=== PATIENT | male | born 1960 | race Caucasian/White ===

== ENCOUNTER → 2023-07-18 15:20 | Outpatient (REF) | payer OTHER, SELFPAY | LOC: RAD 15:20 | PROVIDERS: ATTENDING PHYSICIAN Family Medicine | DX: R05.3 Chronic cough (principal) | CPT/HCPCS: 71046 ==

== ENCOUNTER → 2023-07-26 12:57 | Outpatient (REF) | payer OTHER, SELFPAY | LOC: MRI 12:57 | PROVIDERS: ATTENDING PHYSICIAN Orthopaedic Surgery Orthopaedic Surgery of the Spine; FAMILY PHYSICIAN Family Medicine | DX: M48.062 Spinal stenosis, lumbar region with neurogenic claudication (principal) | CPT/HCPCS: 72158; A9575 ==

== ENCOUNTER 2024-08-27 16:43 | Inpatient (IN) | payer OTHER, SELFPAY ==
[2024-08-27] VITALS (26 sets, daily range): BP systolic 138–190; BP diastolic 66–140; BMI 45.7; BMI 45.0
--- NOTE | 2024-08-27 09:08 | ED.GENMED ---
History of Present Illness
<Alexey Fernandez PA-C - Last Filed: 08/27/24 12:44>
General
Chief Complaint: Breathing Problem
Source: patient and records
Time Seen by Provider: 08/27/24 09:07
History of Present Illness
History of Present Illness:
64-year-old male with past medical history of hypertension, valvular disease, GERD, sleep apnea presenting to the emergency department for evaluation of gradually worsening shortness of breath, exertional dyspnea and lower extremity edema that has
been ongoing and worsening over the last 2 weeks, today was at its worst. Patient was at the dentist office for routine cleaning and he noted to the dentist that he had been feeling unwell, they checked his blood pressure and was noted to have a
systolic blood pressure of greater than 200 and diastolic blood pressure well over 110. Patient states that he is compliant with all of his medications, normally does not check his blood pressure at home so he does note that he is unsure as to what
his blood pressures have been recently. He does state his sensation as if he were wheezing and notes that even walking about 10 feet causes him to be extremely dyspneic. Patient denies any recent illnesses, cough, pleurisy, hemoptysis or any other
concerns.
Past History
<Alexey Fernandez PA-C - Last Filed: 08/27/24 12:44>
Past History
ED Past Medical History: GERD, HTN and Valvular disease
ED Past Surgical History: Cardiac and Orthopedic
Social History
Tobacco: Non-smoker
Alcohol: None
Drug: None
Personal:
Living: with family
Review of Systems
<Alexey Fernandez PA-C - Last Filed: 08/27/24 12:44>
Review of Systems
All Other Systems: ROS reviewed and negative except as documented in HPI and ROS
Phy Exam
<Alexey Fernandez PA-C - Last Filed: 08/27/24 12:44>
Physical Exam
Physical Exam:
GENERAL: Alert , in no apparent distress, significantly overweight, appears uncomfortable and short of breath, 1-2 sentence dyspnea
HEAD: Normocephalic atraumatic
EYE: Clear conjunctiva
NECK: Supple
ENT: o/p clr, mmm.
CARDIAC: Irregularly irregular rate and rhythm with rates between 97 and 110 bpm
LUNGS: Clear breath sounds bilaterally, no acute respiratory distress, no wheezes/rales/rhonchi
ABDOMEN: Soft, without focal tenderness, no r/g, no cvat
NEUROLOGICAL: Alert and oriented
SKIN: Warm and dry, skin intact.
MUSCULOSKELETAL: 1+ pitting edema bilateral lower extremity, well perfused.
PSYCH: Normal and appropriate interaction.
Scores
<Alexey Fernandez PA-C - Last Filed: 08/27/24 12:44>
Heart Failure Risk
Heart Failure Risk Score: Yes
History of Stroke or TIA: No
History of intubation for respiratory distress: No
Heart rate on ED arrival >/= 110: No
SaO2 <90% on arrival on room air: No
HR >/=110 during 3min walk test (or too ill to perform test): Yes
ECG has acute ischemic changes: No
Urea >/=12mmol/L (BUN 33.6mg/dL): No
Serum CO2>/=35mmol/L: No
Troponin I or T elevated to NC Level (0.4mg/dL): No
NT-proBNP >/=5,000ng/L (5,000pg/ml): No
HF Risk Score: 2
Admission Status: MEDIUM RISK 9.2% Consider observation or discharge to home with homecare & f/u visit to PCP/Ditcher, or SNF for treatment
Heart Score for Chest Pain Patients
STEMI patient?: No
History: Moderately Suspicious
ECG: Normal
Age: >45 - <65 years
Risk Factors: 1 or 2 Risk Factors
Troponin: </= Normal Limit
Heart Score for Chest Pain Patients: 3
Heart Score Risk: 2.5% MACE over next 6 weeks
Withdrawal Assessment of Alcohol
Withdrawal Assessment Completed?: Not applicable
Course
<Alexey Fernandez PA-C - Last Filed: 08/27/24 12:44>
Orders/Labs/Results
Orders:
Orders
08/27/24 08:55
Electrocardiogram (*1) Urgent
Reason for Study: Shortness of Breath
EKG- Treatment ONCE
08/27/24 09:16
Furosemide [Lasix] 40 mg IV NOW STA
08/27/24 09:30
Nitroglycerin 100 mg/250 ml [Nitroglycerin Premix] 100 mg in 250 ml IV PER PROTOCOL
Initial dose in mcg/min, then titrate:: 20
Titrate to keep:: SBP < 160 mmHg
Titrate by mcg/min:: 5 mcg/min, may increase by 10 mcg/min if dose > 20 mcg/min
Frequency of titrations (minutes):: every 3-5 minutes
Maximum dose in mcg/min:: 200
Begin to taper infusion when:: Remained at goal for 2hrs
Taper by mcg/min:: 5 mcg/min
Frequency of taper (minutes) if patient maintains goal:: 30
Taper to off?: Yes
If infusion off & no longer maintaining goal:: Contact Provider
08/27/24 09:33
Basic Metabolic Panel Urgent
Complete Blood Count/With Diff Urgent
Iwegm-Mbtl-Wfobnda Urgent
NT-proBNP Urgent
Troponin I Urgent
08/27/24 09:35
CR Chest Portable - 1 View Urgent
Comment:
Reason For Exam: SOB, HTN
Reason Study Needs to be Portable: Patient Unstable
08/27/24 12:23
Echo 2D MMode Color/Doppler Routine
Reason for Study: CHF
08/27/24 20:00
Apixaban [Eliquis] 5 mg PO BID
Abnormal Lab Results
08/27/24
09:33
Lymphocytes % 19.8 L %
(20.5-51.1)
Glucose 140 H mg/dl
(70-99)
Troponin I 0.036 H* ng/ml
08/27/24 09:33
08/27/24 09:33
Vital Signs
Initial and Last Documented VS:
Initial Vital Signs
Temp Pulse Resp BP Pulse Ox
98.4 F 91 18 156/118 96
08/27/24 08:51 08/27/24 08:51 08/27/24 08:51 08/27/24 08:51 08/27/24 08:51
Last Documented Vital Signs
Temp Pulse Resp BP Pulse Ox
98.4 F 120 24 167/123 93
08/27/24 08:51 08/27/24 11:40 08/27/24 11:40 08/27/24 11:40 08/27/24 11:40
<Royal Myers DO - Last Filed: 08/27/24 11:06>
Orders/Labs/Results
Orders:
Orders
08/27/24 08:55
Electrocardiogram (*1) Urgent
Reason for Study: Shortness of Breath
EKG- Treatment ONCE
08/27/24 09:16
Furosemide [Lasix] 40 mg IV NOW STA
08/27/24 09:30
Nitroglycerin 100 mg/250 ml [Nitroglycerin Premix] 100 mg in 250 ml IV PER PROTOCOL
Initial dose in mcg/min, then titrate:: 20
Titrate to keep:: SBP < 160 mmHg
Titrate by mcg/min:: 5 mcg/min, may increase by 10 mcg/min if dose > 20 mcg/min
Frequency of titrations (minutes):: every 3-5 minutes
Maximum dose in mcg/min:: 200
Begin to taper infusion when:: Remained at goal for 2hrs
Taper by mcg/min:: 5 mcg/min
Frequency of taper (minutes) if patient maintains goal:: 30
Taper to off?: Yes
If infusion off & no longer maintaining goal:: Contact Provider
08/27/24 09:33
Basic Metabolic Panel Urgent
Complete Blood Count/With Diff Urgent
Zyoph-Balz-Yjbljqn Urgent
NT-proBNP Urgent
Troponin I Urgent
08/27/24 09:35
CR Chest Portable - 1 View Urgent
Comment:
Reason For Exam: SOB, HTN
Reason Study Needs to be Portable: Patient Unstable
08/27/24 12:23
Echo 2D MMode Color/Doppler Routine
Reason for Study: CHF
08/27/24 20:00
Apixaban [Eliquis] 5 mg PO BID
Abnormal Lab Results
08/27/24
09:33
Lymphocytes % 19.8 L %
(20.5-51.1)
Glucose 140 H mg/dl
(70-99)
Troponin I 0.036 H* ng/ml
08/27/24 09:33
08/27/24 09:33
Vital Signs
Initial and Last Documented VS:
Initial Vital Signs
Temp Pulse Resp BP Pulse Ox
98.4 F 91 18 156/118 96
08/27/24 08:51 08/27/24 08:51 08/27/24 08:51 08/27/24 08:51 08/27/24 08:51
Last Documented Vital Signs
Temp Pulse Resp BP Pulse Ox
98.4 F 120 24 167/123 93
08/27/24 08:51 08/27/24 11:40 08/27/24 11:40 08/27/24 11:40 08/27/24 11:40
<Alexey Fernandez PA-C - Last Filed: 08/27/24 12:44>
MDM/Problems Addressed
Differential Diagnosis Includes:
Cardiac arrhythmia/dysrhythmia/new onset A-fib, worsening valvular disease, pleural effusion, cardiomyopathy, less concern for infectious etiology, ACS
MDM/Problems Addressed:
64-year-old male presenting the ER for evaluation of severely elevated blood pressure combined with worsening shortness of breath over the last 2 weeks. Patient is hypertensive here, improved from reports that dentist office today but appears
unwell, 1-2 sentence dyspnea. No hypoxia. Patient is in new onset A-fib with rates around 100bpm. Possible hypertensive urgency/emergency. Given his profound hypertension with suspicion for congestive heart failure will initiate patient on nitro
drip. Lasix 40 mg IV ordered. Will contact cardiology to discuss case pending labs and imaging. Anticipate admission
Chronic conditions affecting care: HTN
Acute Exacerbation and/or Progression of Chronic Illness: HTN
<Alexey Fernandez PA-C - Last Filed: 08/27/24 12:44>
*Radiology
Radiology exam reviewed: preliminary read by ED provider (Cardiomegaly)
*Pulse Oximetry
Patient hypoxic: no
*EKG
Comparison EKG: changes noted
Heart Rate: 103
Rate: tachycardiac
Rhythm: a-fib and PVC's
Ischemia: non-specific ST changes
*Research Physiologist Interpretation
Rate: tachycardiac
Rhythm: a-fib
*Critical Care Note
Total Time (30-74mins, 75-104mins- exclusive of procedures): 30
comment:
Critical care statement: A total of 30 minutes of critical care time was provided for this patient. This includes management of unstable vital signs, evaluation of the patient at bedside, reviewing the patient's pertinent medical records, discussion
with consultants, review of old EKGs and review of pertinent medical records. This time with separate from time utilized to perform the aforementioned documented procedures
Data Reviewed
Review of Other/Old Records Reveals: Labs, Records and Radiology Studies
Source: patient and records
<Alexey Fernandez PA-C - Last Filed: 08/27/24 12:44>
Patient Management
Discussion with other providers: Hospitalist and Line Locator
Escalation/DeEscalation of care consider admission/obs:
Hospitalist team to admit patient for continued evaluation and treatment of new onset atrial fibrillation, cardiomyopathy, hypertensive urgency. Cardiology team was notified and will see patient in consultation.
ED Attending Note
<Alexey Fernandez PA-C - Last Filed: 08/27/24 12:44>
-
Portions of this chart may have been created with voice recognition software.� Occasional wrong word or��sound alike� substitutions may have occurred due to the inherent limitations of voice recognition software.
<Royal Myers DO - Last Filed: 08/27/24 11:06>
ED Attending Note
Patient seen and examined by attending physician: Yes
I performed the substantive portion of visit, reviewed & personally made and approve the management plan that is documented in note by myself or LUKAS.: Yes
ED Attending Note:
64-year-old male history of hypertension who presents with progressive dyspnea on exertion, orthopnea and lower extremity swelling as well as uncontrolled hypertension. Patient states he has never been short of breath like this. Exam: Heart
irregularly irregular, blood pressure 160/120 on my exam. Legs edematous bilaterally. Is obese. Assessment and plan: Suspect CHF. Question secondary to new onset A-fib. Diurese and start nitro drip. Reassess blood pressure closely
Discharge Plan
Departure
Patient Disposition: Admit
Date of Disposition: 08/27/24
Time of Disposition: 10:39
Presentation/result/management discussed w/ accepting MD/DO: Hospitalist
Discharge Problem:
New onset atrial fibrillation, Acute exacerbation of CHF (congestive heart failure), Hypertensive urgency
Prescriptions:
No Action
rabeprazole [AcipHex] 20 MG tablet,delayed release (DR/EC)
20 mg PO DAILY
diltiazem HCl 180 mg Capsule,Extended Release 24hr
180 mg PO DAILY
torsemide 100 mg Tablet
100 mg PO DAILYPRN PRN (Reason: patient takes this when he can/wants too)
docusate sodium [Colace] 100 mg Capsule
200 mg PO HSPRN PRN (Reason: constipation)
Referrals:
Magdaleno Liang, DO [Family Provider] -
Interventions
Interventions:
*Risk Screen - Suicide Last Done: 08/27/24 08:51
*General Assessment Last Done: 08/27/24 08:51
*Neglect/Abuse Screening Last Done: 08/27/24 08:51
ED- Cardiac Assessment Last Done: 08/27/24 09:48
ED- Neurological Assessment Last Done: 08/27/24 09:48
ED- Pulmonary Assessment Last Done: 08/27/24 09:48
Discharge Date and Time
Print Language: [place]
[2024-08-27] MEDS: LASIX 40 MG IV ×2 (09:25→17:20)
[2024-08-27] MEDS: NITROGLYCERIN PREMIX 250 IV (09:36)
[2024-08-27 09:48] LABS: % Eosinophils 1.3 % (0-6); % Immature Granulocytes 0.3 % (0-0.5); % Lymphocytes 19.8 % (20.5-51.1); % Monocytes 8.5 % (1.7-9.3); % Neutrophils 69.1 % (42.2-75.2); Absolute Basophils 0.1 10^3/uL (0-0.2); Absolute Eosinophils 0.1 10^3/uL (0-0.7); Absolute Lymphocytes 1.2 10^3/uL (1.2-3.4); Absolute Monocytes 0.5 10^3/uL (0.1-0.6); Absolute Neutrophils 4.3 10^3/uL (1.4-6.5); Hemoglobin 14.4 g/dL (13.0-18.0); Mean Corp Hgb Conc. 34.3 g/dL (33.0-37.0); Mean Corpuscular Hgb 29.3 pg (27.0-31.0); Mean Corpuscular Volume 85.5 fL (80.0-94.0); Mean Platelet Volume 10.3 fL (7.4-10.4); Nucleated Red Blood Cells % 0 % (-); Platelet Count 164 10^3/uL (130-400); Red Blood Cell Count 4.91 10^6/uL (4.70-6.10); Red Cell Dist. Width 13.5 % (11.5-14.5); White Blood Cell Count 6.3 10^3/uL (4.8-10.8)
[2024-08-27 10:00] LABS: ALT (SGPT) 31 U/L (0-50); AST (SGOT) 17 U/L (17-59); Albumin 3.9 g/dl (3.5-5.0); Alkaline Phosphatase 87 U/L (38-126); Blood Urea Nitrogen 12 mg/dl (9-20); Calcium 9.1 mg/dl (8.4-10.2); Carbon Dioxide 27 mmol/L (22-30); Chloride 106 mmol/L (98-107); Direct Bilirubin 0.3 mg/dl (0.0-0.4); Estimated Creatinine Clearance > 125 ml/min; Glucose 140 mg/dl (70-99); Potassium 4.1 mmol/L (3.5-5.1); Sodium 141 mmol/L (135-145); Total Bilirubin 1.3 mg/dl (0.2-1.3); Total Protein 6.9 g/dl (6.3-8.2); eGFR > 60.00
[2024-08-27 10:15] LABS: NT-proBNP 1740 pg/ml; Troponin I 0.036 ng/ml
--- NOTE | 2024-08-27 11:15 | CON.CAR ---
Addendum entered and electronically signed by Xavi Mejia MD 08/27/24 15:00:
I saw and examined the patient.
The HOGSHEAD DUMPER's note was reviewed and I agree with the note.
Comment:
64-year-old man with VT s/p ICD, HFpEF, hypertension, hyperlipidemia, JACOBO on CPAP, paroxysmal atrial fibrillation (previously not on anticoagulation) who presents with 2 weeks of dyspnea and leg swelling. He reports that he has not been taking his
diuretic because he is bothered by how much he has to pee. Today he was short of breath even with walking 30 feet from his office to the conference room and decided to come to the hospital. On exam, he is obese, dyspneic with long sentences, has
3+ lower extremity edema, irregular rate and rhythm, no murmurs, and decreased breath sounds. Labs notable for troponin 0.036, proBNP 1740, creatinine 0.8. ECG shows atrial fibrillation with rapid ventricular response, HR 103 bpm, nonspecific ST T
wave changes. TTE 08/27/2024: LVEF 60-65%, normal RV, severe TR, PASP at least 41 mmHg. Device interrogation reveals that he has been in atrial fibrillation since 06/18/2024.
Mr. Oliva is profoundly volume overloaded due to severe exacerbation of acute on chronic HFpEF. We will continue IV diuresis with 40 mg IV Lasix twice daily. He thinks his dry weight is around 340 pounds, but he is 346 lb here and clearly
has a lot of volume on board, so we will likely need to reestablish a dry weight. For his persistent atrial fibrillation, we will increase his diltiazem from 180 mg daily to 240 mg daily. We will also start Eliquis for anticoagulation.
[id number] 2 (hypertension, CHF). If he is still in atrial fibrillation once euvolemic, we can consider NIMESH/cardioversion. He is currently requiring a nitro drip for hypertensive urgency. Goal BP less than 160/100 for first 24 hours. Suspect
his blood pressures will decrease as we diurese him.
Original Note:
Consultation
Consultation Request
Date/Time Consultation Requested: 08/27/24 1032
Date/Time Consultation Performed: 08/27/24 1100
Requesting Provider: Alexey NEFF
Performing Provider: Trinidad GARCIA for Dr. Mejia
Reason for Consultation: BAILON, HTN, AFIB, CHF
Medical History
-
Chief Complaint: SOB
History of Present Illness:
64 y/o male (patient of Dr. 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
present for about 2 weeks, but worsened significantly over the past few days. Worse with exertion, worse with laying. Has a dry cough now. Has to stop after 10-15 feet. He has LE edema and abdominal bloating. He has not noticed weight gain, but has
been on a diet. Thinks his weight is typically around 340 lbs. Currently 345 lbs in ER. He has not been very mobile due to back issues. Otherwise, he is prescribed torsemide 100 mg daily, but has not been taking it over the past few weeks due to too
much urination. He has been compliant with CPAP. He went to his dentist today to have a cavity filled and told them he had this SOB and they checked a BP and it was severely elevated around 230 mmhg systolically per patient and he was told to come
to the ER. He is in no distress at the time of my assessment.
Past Medical History
Past Medical History: Arrhythmias, CHF, GERD, HTN and Hypercholesterolemia
Social History
Tobacco: Non-Smoker
Alcohol: None (hasn't been drinking any ETOH due to diet)
Family History
Family History: CAD (mom)
Allergies / Home Medications
Allergy/AdvReac Type Severity Reaction Status Date / Time
No Known Allergies Allergy Verified 08/27/24 08:51
�Medication �Instructions �Recorded �Confirmed �Type
rabeprazole 20 mg tablet,delayed 20 mg PO DAILY 04/24/21 08/27/24 History
release (AcipHex)
diltiazem HCl 180 mg 180 mg PO DAILY 08/27/24 08/27/24 History
capsule,extended release 24 hr
docusate sodium 100 mg capsule 200 mg PO HSPRN PRN constipation 08/27/24 08/27/24 History
(Colace)
torsemide 100 mg tablet 100 mg PO DAILYPRN PRN patient 08/27/24 08/27/24 History
takes this when he can/wants too
Review of Systems
-
History Source: Patient
All other systems: Negative unless noted
Respiratory: Cough and Trouble Breathing
Physical Exam
Vital Signs
Temp Pulse Resp BP Pulse Ox
98.4 F 108 28 147/105 92
08/27/24 08:51 08/27/24 10:21 08/27/24 10:21 08/27/24 10:00 08/27/24 10:21
Lab Results
08/27/24 09:33
08/27/24 09:33
Troponin I 0.036 ng/ml H* 08/27/24 09:33
Nyd-V-Wrvhtiuzwon Pept 1740 pg/ml 08/27/24 09:33
Physical Exam
General: No Apparent Distress
HEENT: Normocephalic and Anicteric
Respiratory: Other (diminished to b/l bases)
Cardiac: Irregular Rhythm
Musculoskeletal: Edema (moderate BLE edema)
Skin: Warm and Dry
Neuro: AO x 3
Psych: Calm
Impression / Plan
-
SOB:
-wzzqz-ki-swmnieg HFpEF- typically on high dose torsemide daily (100 mg), but hasn't been taking that for weeks due to increased urination. Agree with IV diuresis, which requires intensive monitoring. Update echo. CHF education. Limit sodium and
fluid.
AFIB: persistent
-OP notes reviewed and paroxysmal in the past. I interrogated device to see if we can tell when it started- per device RN, patient in AFIB since 06/18/24 with rates 70-140 BPM.
-no palps. Continue diltiazem, but increase dose for better rate control.
-eventual rhythm control, but after diuresis
-reports compliance with CPAP, does not drink any ETOH at this time due to his diet- I told him best practice is to continue this (no ETOH)
-check thyroid
-[id number] score is 3 for HTN, CHF. Eliquis 5 mg PO BID recommended. He is agreeable for OAC and denies any history of bleeding issues. Check pricing with CM.
HTN:
-severe
-monitor with diuresis
-currently on nitro drip, which requires intensive monitoring
-on dilt 180 mg daily at home
VT s/p ICD:
-stable, no shocks or ventricular events on interrogation
Obesity, severe:
-will benefit from weight loss moving forward
Data Reviewed
-
EKG: Tracing Personally Visualized and interpreted (AFIB 103 BPM)
Radiology: Report Reviewed by me (CXR: cardiomegaly and mild CHF with probable minimal left effusion.)
Medical Tests (Nuc Med, Echo etc): Report Reviewed by me (echo 04/25/21: Normal biventricular size and systolic function without regional wall motion abnormality. Estimated LVEF 55%. Mild concentric left ventricular hypertrophy. Normal diastolic
function. No significant valve disease. Normal PASP.)
Labs: Labs Reviewed by me
--- NOTE | 2024-08-27 14:08 | CARDSERVLU ---
Echocardiogram with [facility] completed after protocol screening completed. Allergies verified.
Patent IV site: _L A/C____
IV site flushed with 0.9% NaCl pre and post administration.
Diluted bolus method utilized to enhance visualization of ventricular cabrera.
Total volume given: ___3_ mL
Patient tolerated all procedures well without complications.
[2024-08-27 15:18] LABS: TSH Reflex To Free T4 1.17 uIU/ml (0.47-4.68)
--- NOTE | 2024-08-27 15:30 | CM ---
Met patient and in room. Patient independent,drives. They live in 2 level home with one step to enter. Half bath on food service substitute. UP full flight to bedrooms and full bathroom. He has shower rails. NO history of SNF, VNA.
Pharmacy: [facility]
PCP:Patsy Liang
Cm consult for cost of [place] 5 mg BID. Called Rx insurer and received cost estimates of 30 days $50.00 and 90 days $100.00. Both patient and said they can afford that. Cost estimates sent to Trinidad Dunaway who put consult in.
PLAN: home no needs
--- NOTE | 2024-08-27 16:07 | HPS.HSE ---
Family Physician
-
Family Physician: Magdaleno Liang
Chief Complaint
-
Shortness of breath for 2 weeks duration
History of Present Illness
64 years old male admitted with shortness of breath. Patient reported started mild but progressed over the last few days. He also noticed weight gain with abdominal bloating. Patient reports heaviness in his chest at times. He denies productive
cough. No fever or chills. In the ER, he was found to have elevated blood pressure and was started on nitroglycerin drip. He does have history of atrial fibrillation.
Medical History
Past Medical History
Past Medical History: Reports Other (Atrial fibrillation, heart failure, hypertension, history of ventricular tachycardia status post ICD, obesity)
Past Surgical History: Reports Other (No recent major surgery)
Social History
Tobacco: Non-smoker
Alcohol: None
Drug: None
Personal:
Living: With Family
Family History
Family History: CAD
Allergies / Home Medications
Allergies reflects when Allergies were last updated in [facility].
Home Medications with original date entered in [facility]
Allergy/Medication List:
Allergies
Allergy/AdvReac Type Severity Reaction Status Date / Time
No Known Allergies Allergy Verified 08/27/24 08:51
Home Medications
rabeprazole 20 mg tablet,delayed release (AcipHex) 20 mg PO DAILY 04/24/21
diltiazem HCl 180 mg capsule,extended release 24 hr 180 mg PO DAILY 08/27/24
docusate sodium 100 mg capsule (Colace) 200 mg PO HSPRN PRN constipation 08/27/24
torsemide 100 mg tablet 100 mg PO DAILYPRN PRN patient takes this when he can/wants too 08/27/24
Review of Systems
-
History Source: Patient
A 12 point ROS was completed and negative except as noted: Yes
Constitutional: Denies Fever
EENT: Denies Sore Throat
Respiratory: Reports Cough and Trouble Breathing
Cardiac: Denies Chest Pain
Abdomen/GI: Denies Abdominal Pain
: Denies Difficulty Voiding
Musculoskeletal: Reports Edema; Denies Muscle Stiffness
Neurological: Denies Numbness
Endocrine: Denies Temp Intolerance
Hematologic/Lymphatic: Denies Bruising
Psych: Denies Panic Disorder
Physical Exam
Vital Signs
Vital Signs
Temp Pulse Resp BP Pulse Ox
98.4 F 99 22 148/66 95
08/27/24 08:51 08/27/24 15:30 08/27/24 15:30 08/27/24 15:30 08/27/24 15:30
Physical Exam
General: Conversant and Obese; No Pain
HEENT: Anicteric and Moist mucous membranes
Respiratory: Rales
Cardiac: S1/S2 and Irregular Rhythm
GI: Soft and Non Tender
Genito-urinary: No Rice
Musculoskeletal: Edema, Left Lower Extremity and Edema, Right Lower Extremity
Skin: No Jaundice
Neuro: AO x 3 and Nonfocal/grossly intact
Psych: Calm and Intact Judgment/Insight
Laboratory Results
-
08/27/24 09:33
08/27/24 09:33
Laboratory Results
Total Bilirubin 1.3 mg/dl (0.2-1.3) 08/27/24 09:33
AST 17 U/L (17-59) 08/27/24 09:33
ALT 31 U/L (0-50) 08/27/24 09:33
Alkaline Phosphatase 87 U/L (38-126) 08/27/24 09:33
Troponin I 0.036 ng/ml H* 08/27/24 09:33
Impression/Plan
-
64 years old male presented with shortness of breath was diagnosed with acute heart failure
#Acute on chronic heart failure with preserved ejection fraction
Admit the patient to the hospital
Start the patient on intravenous diuretic, twice daily for now. Monitor weight and electrolytes
Control heart rate with rate control medication
Restrict salt intake
Monitor on telemetry echocardiogram 08/27/24 showed LVEF 60 to 65% with no regional wall motion abnormality both ventricles, severe tricuspid regurgitation, PASP 41 mmHg
# None ischemic myocardial injury with a troponin elevation. Recheck troponin.
# Hypertensive emergency with heart failure
Patient was started on intravenous nitroglycerin drip
Will wean off nitroglycerin drip and continue with Lasix, Cardizem, add as needed hydralazine
# History of V. 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
#Primary hypertension
#Morbid obesity, BMI 45
#History of paroxysmal atrial fibrillation, currently persistent
[id number] score around 2 4 hypertension and heart failure, patient was started on Eliquis.
c/w Cardizem
# Obstructive sleep apnea, continue with CPAP
# Headache, likely related to Nitro gtt, will wean off
Add PRN Tylenol.
Total time spent to see the patient, examine the patient, review data and lab result, discuss treatment plan with patient, ER doctor, nursing staff around 75 minutes
[2024-08-27] MEDS: TYLENOL 1000 MG PO ×2 (17:14→23:19)
[2024-08-27 18:02] LABS: Troponin I 0.023 ng/ml
--- NOTE | 2024-08-27 18:44 | PTCARENOTE ---
Rec'd Pt A,A+Ox3, no c/o pain currently. IV Ntg at 40 mcg/min infusing via R AC. L AC INT. Pt in A-fib on take away worker. HR 80-100's, up to 140's with activity.
[2024-08-27] MEDS: ELIQUIS 5 MG PO (19:16)
--- NOTE | 2024-08-27 23:33 | PTCARENOTE ---
Received patient at change of shift. SR on the monitor, HR in the 60s. Nitro running as per protocol, see JUL. Pt complains of head ache and lower back pain, PRN Tylenol administered as per JUL. Call rees within reach.
[2024-08-28] VITALS (9 sets, daily range): BP systolic 152–176; BP diastolic 85–109; BMI 44.4
[2024-08-28 04:57] LABS: Blood Urea Nitrogen 13 mg/dl (9-20); Carbon Dioxide 26 mmol/L (22-30); Chloride 104 mmol/L (98-107); Estimated Creatinine Clearance > 125 ml/min; Glucose 142 mg/dl (70-99); Potassium 3.9 mmol/L (3.5-5.1); Sodium 140 mmol/L (135-145); eGFR > 60.00
[2024-08-28] MEDS: TYLENOL 1000 MG PO ×2 (06:12→12:18)
[2024-08-28] MEDS: PROTONIX 40 MG PO (08:08)
[2024-08-28] MEDS: CARDIZEM CD 240 MG PO (08:08)
[2024-08-28] MEDS: LASIX 40 MG IV ×2 (08:08→15:27)
[2024-08-28] MEDS: ELIQUIS 5 MG PO ×2 (08:08→19:36)
[2024-08-28] MEDS: COREG 6.25 MG PO (11:15)
--- NOTE | 2024-08-28 12:30 | PTCARENOTE ---
Pt is AOx3, complains of headache, given PRN tylenol as ordered. Nitro gtt stopped per Dr Perez. Independent OOB. Afib on tele monitor. BP elevated. Will continue to monitor.
--- NOTE | 2024-08-28 12:31 | W.PN.HOSP.TC ---
Today's Communication/Plan
-
DC Nitro gtt
Tylenol for headache
Use PRN Hydralazine
Add Coreg
Assessment / Plan
Assessment / Plan
Physical Exam
General: Conversant and Obese; No Pain
HEENT: Anicteric and Moist mucous membranes
Respiratory: Rales
Cardiac: S1/S2 and Irregular Rhythm
GI: Soft and Non Tender
Genito-urinary: No Rice
Musculoskeletal: Edema, Left Lower Extremity and Edema, Right Lower Extremity
Skin: No Jaundice
Neuro: AO x 3 and Nonfocal/grossly intact
Psych: Calm and Intact Judgment/Insight
64 years old male presented with shortness of breath was diagnosed with acute heart failure
#Acute on chronic heart failure with preserved ejection fraction
c/w Lasix BID
Weight, lost 2 kg
Monitor weight and electrolytes
Control heart rate with rate control medication
Restrict salt intake
Monitor on telemetry echocardiogram 08/27/24 showed LVEF 60 to 65% with no regional wall motion abnormality both ventricles, severe tricuspid regurgitation, PASP 41 mmHg
# None ischemic myocardial injury with a troponin elevation. Recheck troponin came down.
# Hypertensive emergency with heart failure
Patient was started on intravenous nitroglycerin drip, will stop due to worsening headache
Will start on Coreg, add PRN Hydralazine
# History of V. 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
#Primary hypertension
#Morbid obesity, BMI 45
#History of paroxysmal atrial fibrillation, currently persistent
[id number] score around 2 4 hypertension and heart failure, patient was started on Eliquis.
HR around 100
c/w Cardizem
Add Coreg
# Obstructive sleep apnea, continue with CPAP
# Headache, likely related to Nitro gtt, will stop it.
Total time spent to see the patient, examine the patient, review data and lab result, discuss treatment plan with patient, nursing staff around 55 minutes
Anticipated Discharge: 24 - 48 hours
Subjective/Interval History
-
Date of Service: August 28, 2024
No sob
No chest pain
No fevers
Still headache
Objective Data
-
Labs:
Laboratory Results
08/28/24
04:19
Sodium 140
Potassium 3.9
Chloride 104
Carbon Dioxide 26
BUN 13
Creatinine 0.9
Glucose 142 H
Calcium 9.0
Vital Signs:
Vital Signs
Temp Pulse Resp BP Pulse Ox
98.5 F 110 18 168/100 94
08/28/24 11:36 08/28/24 12:00 08/28/24 11:36 08/28/24 11:38 08/28/24 11:36
I&O
08/27/24 08/28/24 08/29/24
06:59 06:59 06:59
Output Total 1225 / 1925 1300 / 1300
Balance -1225 / -1925 -1300 / -1300
--- NOTE | 2024-08-28 12:58 | CM ---
spoke to pt in room, he is prev indep, lives with his in a 2 story home with 2 steps to enter. he denies any dc planning needs or dme's. plan is for dc to home when medically stable.
--- NOTE | 2024-08-28 13:00 | CM ---
[facility] 30 day = $50/mo- $10 copay card placed in pts red dc folder
--- NOTE | 2024-08-28 13:30 | W.PN.CD ---
Today's Communication / Plan
-
Continue IV Lasix twice daily
Continue diltiazem and Eliquis
Start losartan 50 mg daily for elevated blood pressures
Impression / Plan
-
64-year-old man with VT s/p ICD, HFpEF, hypertension, hyperlipidemia, JACOBO on CPAP, paroxysmal atrial fibrillation (previously not on anticoagulation) who presents with 2 weeks of dyspnea and leg swelling.
Shoaz-qi-yzdidfw HFpEF
- Severe exacerbation requiring IV diuresis and close monitoring of labs and telemetry
- TTE 08/27/24: LVEF 60-65%, severe TR, PASP 41 mmHg
- Typically on high dose torsemide daily (100 mg), but hasn't been taking that for weeks due to increased urination.
- Continue IV Lasix 40 mg twice daily
- Strict I/O's, daily weights, BMP
- CHF education. Limit sodium and fluid.
AFIB: persistent
-OP notes reviewed and paroxysmal in the past. Per device RN, patient in AFIB since 06/18/24 with rates 70-140 BPM.
-no palps. Continue diltiazem 240 mg daily
-eventual rhythm control, but after diuresis
-reports compliance with CPAP, does not drink any ETOH at this time due to his diet
-[id number] score is 2 for HTN, CHF. Eliquis 5 mg PO BID recommended. He is agreeable for OAC and denies any history of bleeding issues. Check pricing with .
Hypertensive urgency
-On dilt 180 mg daily at home. Diltiazem increased to 240 mg daily as above
-Start losartan 50 mg daily. Stop nitro drip
-monitor with diuresis
VT s/p ICD:
-stable, no shocks or ventricular events on interrogation
Obesity, severe:
-will benefit from weight loss moving forward
Subjective: Breathing feels improved as does chest tightness. Persistent lower extremity edema.
Physical Exam
Vital Signs/Labs
Vital Signs
Temp Pulse Resp BP Pulse Ox
98.5 F 110 18 168/100 94
08/28/24 11:36 08/28/24 12:00 08/28/24 11:36 08/28/24 11:38 08/28/24 11:36
08/27/24 08/28/24 08/29/24
06:59 06:59 06:59
Actual Weight 336 lb 10.334 oz
08/27/24 09:33
08/28/24 04:19
08/27/24
09:33
Miu-Q-Fdgxhojjjgs Pept 1740
LAB Results
08/27/24 08/27/24
09:33 17:20
Troponin I 0.036 H* 0.023 D
Physical Exam
Constitutional: No acute distress and Comfortable
Cardiovascular: Rhythm/rate is irregular, Pedal edema present, S1S2 is normal and Murmur/rub/gallop absent
Respiratory: Respiratory effort normal and Other (Decreased breath sounds)
Neuro/Psych: AO x 3
Data Reviewed
-
Date of Service: August 28, 2024
Medical Decision Making: Reviewed Test Results, Independent Historian Assessment, Test Interpretation and Review of Case with other Provider
EKG: Tracing Personally Visualized and interpreted
Echo: Tracing Personally Visualized and interpreted
Labs: Labs Reviewed by me
[2024-08-28] MEDS: COZAAR 50 MG PO (15:26)
[2024-08-28] MEDS: COREG 12.5 MG PO (19:36)
--- NOTE | 2024-08-28 22:39 | PTCARENOTE ---
Received patient at change of shift. Afib on the monitor, HR in the 80s, asymptomatic. Educated pt on heart failure and fluid intake, pt verbalizes understanding. No complaints from pt at this time, call rees within reach.
[2024-08-29] VITALS (7 sets, daily range): BP systolic 128–163; BP diastolic 77–110; BMI 43.8
[2024-08-29 05:10] LABS: Blood Urea Nitrogen 15 mg/dl (9-20); Calcium 8.8 mg/dl (8.4-10.2); Carbon Dioxide 26 mmol/L (22-30); Chloride 103 mmol/L (98-107); Estimated Creatinine Clearance 117 ml/min; Glucose 140 mg/dl (70-99); Potassium 3.5 mmol/L (3.5-5.1); Sodium 139 mmol/L (135-145); eGFR > 60.00
[2024-08-29] MEDS: LASIX 40 MG IV ×2 (08:40→16:23)
[2024-08-29] MEDS: PROTONIX 40 MG PO (08:41)
[2024-08-29] MEDS: COZAAR 50 MG PO ×2 (08:41→10:45)
[2024-08-29] MEDS: COREG 12.5 MG PO ×2 (08:42→20:20)
[2024-08-29] MEDS: CARDIZEM CD 240 MG PO (08:42)
[2024-08-29] MEDS: ELIQUIS 5 MG PO ×2 (08:42→20:20)
--- NOTE | 2024-08-29 10:04 | W.PN.CD ---
Today's Communication / Plan
-
Continue twice daily IV Lasix
Increase losartan to 100 mg daily
NIMESH/DCCV once more euvolemic
Impression / Plan
-
64-year-old man with VT s/p ICD, HFpEF, hypertension, hyperlipidemia, JACOBO on CPAP, paroxysmal atrial fibrillation (previously not on anticoagulation) who presents with 2 weeks of dyspnea and leg swelling.
Iwhmk-yc-mqvcbio HFpEF
- Severe exacerbation requiring IV diuresis and close monitoring of labs and telemetry
- TTE 08/27/24: LVEF 60-65%, severe TR, PASP 41 mmHg
- Typically on high dose torsemide daily (100 mg), but hasn't been taking that for weeks due to frequent urination.
- Continue IV Lasix 40 mg twice daily. Weights are coming down.
- Strict I/O's, daily weights, BMP
- CHF education. Limit sodium and fluid.
AFIB: persistent
-OP notes reviewed and paroxysmal in the past. Per device RN, patient in AFIB since 06/18/24 with rates 70-140 BPM.
-no palps. Continue diltiazem 240 mg daily
-eventual rhythm control, but after diuresis
-reports compliance with CPAP, does not drink any ETOH at this time due to his diet
-[id number] score is 2 for HTN, CHF. Continue Eliquis 5 mg twice daily (new this admission)
Hypertensive urgency
- Initially required nitro drip but had to be stopped due to headaches
- On dilt 180 mg daily at home. Diltiazem increased to 240 mg daily as above
- Increase losartan to 100 mg daily
- monitor with diuresis
VT s/p ICD:
-stable, no shocks or ventricular events on interrogation
Obesity, severe:
-will benefit from weight loss moving forward
Subjective: Slept well last night. Persistent lower extremity edema.
Physical Exam
Vital Signs/Labs
Vital Signs
Temp Pulse Resp BP Pulse Ox
98.8 F 79 18 146/92 94
08/29/24 07:07 08/29/24 08:40 08/29/24 07:07 08/29/24 08:40 08/29/24 07:07
08/28/24 08/29/24 08/30/24
06:59 06:59 06:59
Actual Weight 336 lb 10.334 oz 332 lb 0.258 oz
08/27/24 09:33
08/29/24 04:25
08/27/24
09:33
Ggn-L-Fzzuvycjptd Pept 1740
LAB Results
08/27/24 08/27/24
09:33 17:20
Troponin I 0.036 H* 0.023 D
Physical Exam
Constitutional: No acute distress and Comfortable
Cardiovascular: Rhythm/rate is irregular, Pedal edema present, S1S2 is normal and Murmur/rub/gallop absent
Respiratory: Respiratory effort normal and Lungs clear to auscul.
Neuro/Psych: AO x 3
Data Reviewed
-
Date of Service: August 29, 2024
Medical Decision Making: Reviewed Test Results, Independent Historian Assessment, Test Interpretation and Review of Case with other Provider
EKG: Tracing Personally Visualized and interpreted
Echo: Report Reviewed by me
Labs: Labs Reviewed by me
--- NOTE | 2024-08-29 13:00 | W.PN.HOSP.TC ---
Today's Communication/Plan
-
c/w IV Lasix
Monitor weight
Increase Losartan
c/w BB
Assessment / Plan
Assessment / Plan
Physical Exam
General: Conversant and Obese; No Pain
HEENT: Anicteric and Moist mucous membranes
Respiratory: Rales
Cardiac: S1/S2 and Irregular Rhythm
GI: Soft and Non Tender
Genito-urinary: No Rice
Musculoskeletal: Edema, Left Lower Extremity and Edema, Right Lower Extremity
Skin: No Jaundice
Neuro: AO x 3 and Nonfocal/grossly intact
Psych: Calm and Intact Judgment/Insight
64 years old male presented with shortness of breath was diagnosed with acute heart failure
#Acute on chronic heart failure with preserved ejection fraction
c/w Lasix BID
Weight, lost 4-5 kg
Monitor weight and electrolytes
Control heart rate with rate control medication
Restrict salt intake
Monitor on telemetry echocardiogram 08/27/24 showed LVEF 60 to 65% with no regional wall motion abnormality both ventricles, severe tricuspid regurgitation, PASP 41 mmHg
# None ischemic myocardial injury with a troponin elevation. Recheck troponin came down.
# Hypertensive emergency with heart failure
REsolved
s/p Nitro gtt
Now on Losartan, monitor for side effects as cough
Started on Cardizem, Coreg with Lasix
PRN Hydralazine
# History of V. 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
#Primary hypertension
#Morbid obesity, BMI 45
#History of paroxysmal atrial fibrillation, currently persistent
[id number] score around 2 4 hypertension and heart failure, patient was started on Eliquis.
HR around 100
c/w Cardizem
Added Coreg
Plan: NIMESH/DCCV once more euvolemic
# Obstructive sleep apnea, continue with CPAP
Total time spent to see the patient, examine the patient, review data and lab result, discuss treatment plan with patient, , nursing staff around 55 minutes
Anticipated Discharge: > 48 hours
Subjective/Interval History
-
Date of Service: August 29, 2024
No chest pain
No headache
Objective Data
-
Labs:
Laboratory Results
08/29/24
04:25
Sodium 139
Potassium 3.5
Chloride 103
Carbon Dioxide 26
BUN 15
Creatinine 1.0
Glucose 140 H
Calcium 8.8
Vital Signs:
Vital Signs
Temp Pulse Resp BP Pulse Ox
98.4 F 71 18 128/87 95
08/29/24 12:01 08/29/24 12:20 08/29/24 12:01 08/29/24 12:03 08/29/24 12:01
I&O
08/28/24 08/29/24 08/30/24
06:59 06:59 06:59
Intake Total 480 / 480
Output Total 1225 / 1925 1300 / 1300
Balance -745 / -1445 -1300 / -1300
--- NOTE | 2024-08-29 17:57 | PTCARENOTE ---
Discussed all nursing measures prior to implementation. VSS. Will monitor.
--- NOTE | 2024-08-29 19:40 | PTCARENOTE ---
Assumed care of pt from prev nsg shift; Pt AAOx3 w/no c/o CP or SOB. Pt reports 'feeling much better'; Pt's VSS w/HR in the 70's & BP 152/92. 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 Pt w/call rees within reach & plan of care ongoing.
[2024-08-29] MEDS: FLUSH (NSS) 2 FLUSH IV (20:20)
[2024-08-30 05:12] VITALS: BP 150/109
[2024-08-30 06:00] VITALS: BMI 43.1
[2024-08-30 06:08] LABS: Blood Urea Nitrogen 19 mg/dl (9-20); Calcium 8.9 mg/dl (8.4-10.2); Carbon Dioxide 28 mmol/L (22-30); Chloride 101 mmol/L (98-107); Estimated Creatinine Clearance 117 ml/min; Glucose 137 mg/dl (70-99); Potassium 3.8 mmol/L (3.5-5.1); Sodium 139 mmol/L (135-145); eGFR > 60.00
[2024-08-30 08:06] VITALS: BP 155/91
[2024-08-30] MEDS: COREG 12.5 MG PO ×2 (08:09→20:05)
[2024-08-30] MEDS: ELIQUIS 5 MG PO ×2 (08:09→20:05)
[2024-08-30] MEDS: COZAAR 100 MG PO (08:09)
[2024-08-30] MEDS: PROTONIX 40 MG PO (08:09)
[2024-08-30] MEDS: CARDIZEM CD 240 MG PO (08:10)
[2024-08-30] MEDS: LASIX 40 MG IV ×2 (08:48→16:12)
--- NOTE | 2024-08-30 09:52 | W.PN.HOSP.TC ---
Today's Communication/Plan
-
Lasix
daily weight
BMP & CBC in AM
Cardizem, Coreg, Losartan
Assessment / Plan
Assessment / Plan
Physical Exam
General: Conversant and Obese; No Pain
HEENT: Anicteric and Moist mucous membranes
Respiratory: Rales
Cardiac: S1/S2 and Irregular Rhythm
GI: Soft and Non Tender
Genito-urinary: No Rice
Musculoskeletal: Edema, Left Lower Extremity and Edema, Right Lower Extremity
Skin: No Jaundice
Neuro: AO x 3 and Nonfocal/grossly intact
Psych: Calm and Intact Judgment/Insight
64 years old male presented with shortness of breath was diagnosed with acute heart failure
#Acute on chronic heart failure with preserved ejection fraction
c/w Lasix BID for another day
Weight, lost weight
Monitor weight and electrolytes
Control heart rate with rate control medication
Restrict salt intake
Monitor on telemetry echocardiogram 08/27/24 showed LVEF 60 to 65% with no regional wall motion abnormality both ventricles, severe tricuspid regurgitation, PASP 41 mmHg
# None ischemic myocardial injury with a troponin elevation. Recheck troponin came down.
# Hypertensive emergency with heart failure
Primary HTN ( poorly controlled)
Resolved
s/p Nitro gtt
Now on Losartan, increase to 100 mg QD, monitor for side effects as cough ( pt had cough with lisinopril)
Started on Cardizem, Coreg with Lasix
PRN Hydralazine
# History of V. 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
#Primary hypertension
#Morbid obesity, BMI 45
#History of paroxysmal atrial fibrillation, currently persistent
[id number] score around 2 4 hypertension and heart failure, patient was started on Eliquis.
HR improved to around 70s.
c/w Cardizem
Added Coreg
Plan: NIMESH/DCCV once more euvolemic ( Likely 09/01)
# Obstructive sleep apnea, continue with CPAP
Total time spent to see the patient, examine the patient, review data and lab result, discuss treatment plan with patient, , nursing staff around 55 minutes
Anticipated Discharge: > 48 hours
Subjective/Interval History
-
Date of Service: August 30, 2024
He is feeling better
Less sob, less cough
No chest pain
Objective Data
-
Labs:
Laboratory Results
08/30/24
05:23
Sodium 139
Potassium 3.8
Chloride 101
Carbon Dioxide 28
BUN 19
Creatinine 1.0
Glucose 137 H
Calcium 8.9
Vital Signs:
Vital Signs
Temp Pulse Resp BP Pulse Ox
98.1 F 76 20 155/91 93
08/30/24 05:12 08/30/24 08:48 08/30/24 05:12 08/30/24 08:48 08/30/24 05:12
I&O
08/29/24 08/30/24 08/31/24
06:59 06:59 06:59
Intake Total 960 / 960
Output Total 1300 / 1300
Balance -1300 / -1300 960 / 960
--- NOTE | 2024-08-30 10:47 | W.PN.CD ---
Today's Communication / Plan
-
Continue twice daily Lasix
NIMESH/DCCV once euvolemic
Impression / Plan
-
64-year-old man with VT s/p ICD, HFpEF, hypertension, hyperlipidemia, JACOBO on CPAP, paroxysmal atrial fibrillation (previously not on anticoagulation) who presents with 2 weeks of dyspnea and leg swelling.
Pmyrk-oy-wdxxnva HFpEF
- Severe exacerbation requiring IV diuresis and close monitoring of labs and telemetry
- TTE 08/27/24: LVEF 60-65%, severe TR, PASP 41 mmHg
- Typically on high dose torsemide daily (100 mg), but hasn't been taking that for weeks due to frequent urination.
- Continue IV Lasix 40 mg twice daily. Weights are coming down.
- Strict I/O's, daily weights, BMP
- CHF education. Limit sodium and fluid.
AFIB: persistent
-OP notes reviewed and paroxysmal in the past. Per device RN, patient in AFIB since 06/18/24 with rates 70-140 BPM.
-no palps. Continue diltiazem 240 mg daily and Carvedilol 12.5mg daily
-eventual rhythm control, but after diuresis
-reports compliance with CPAP, does not drink any ETOH at this time due to his diet
-[id number] score is 2 for HTN, CHF. Continue Eliquis 5 mg twice daily (new this admission)
Hypertensive urgency
- Initially required nitro drip but had to be stopped due to headaches
- On dilt 180 mg daily at home. Diltiazem increased to 240 mg daily as above
- Continue carvedilol 12.5 mg twice daily
- Increase losartan to 100 mg daily
- monitor with diuresis
VT s/p ICD:
-stable, no shocks or ventricular events on interrogation
Obesity, severe:
-will benefit from weight loss moving forward
Subjective: No CV complaints. Feels well. Weight down and lower extremity edema improving.
Physical Exam
Vital Signs/Labs
Vital Signs
Temp Pulse Resp BP Pulse Ox
98.1 F 76 20 155/91 93
08/30/24 05:12 08/30/24 08:48 08/30/24 05:12 08/30/24 08:48 08/30/24 05:12
08/29/24 08/30/24 08/31/24
06:59 06:59 06:59
Actual Weight 332 lb 0.258 oz 326 lb 4.546 oz
08/27/24 09:33
08/30/24 05:23
08/27/24
09:33
Iav-U-Xgjptoxizdb Pept 1740
LAB Results
08/27/24
17:20
Troponin I 0.023 D
Physical Exam
Constitutional: No acute distress and Comfortable
Cardiovascular: Rhythm/rate is irregular and Pedal edema present
Respiratory: Respiratory effort normal and Lungs clear to auscul.
Neuro/Psych: AO x 3
Data Reviewed
-
Date of Service: August 30, 2024
Medical Decision Making: Reviewed Test Results, Independent Historian Assessment, Test Interpretation and Review of Case with other Provider
EKG: Tracing Personally Visualized and interpreted
Echo: Report Reviewed by me
Labs: Labs Reviewed by me
[2024-08-30 12:02] VITALS: BP 135/84
[2024-08-30 16:10] VITALS: BP 138/81
--- NOTE | 2024-08-30 20:00 | PTCARENOTE ---
Assumed care of pt from prev nsg shift; Pt AAOx3 w/no c/o CP or SOB. Pt's VSS w/HR in the 70's & BP 150/77. 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 Pt w/call rees within reach & no addtl needs at this time. Plan of care ongoing.
[2024-08-30 20:03] VITALS: BP 150/77
[2024-08-30 22:53] VITALS: BP 154/90
[2024-08-31] VITALS (12 sets, daily range): BP systolic 119–157; BP diastolic 66–108; BMI 42.6
[2024-08-31 04:51] LABS: Blood Urea Nitrogen 25 mg/dl (9-20); Calcium 9.1 mg/dl (8.4-10.2); Carbon Dioxide 27 mmol/L (22-30); Chloride 101 mmol/L (98-107); Estimated Creatinine Clearance 106 ml/min; Glucose 142 mg/dl (70-99); Hemoglobin 14.3 g/dL (13.0-18.0); Mean Corp Hgb Conc. 34.9 g/dL (33.0-37.0); Mean Corpuscular Hgb 29.2 pg (27.0-31.0); Mean Corpuscular Volume 83.7 fL (80.0-94.0); Mean Platelet Volume 10.6 fL (7.4-10.4); Platelet Count 197 10^3/uL (130-400); Potassium 3.7 mmol/L (3.5-5.1); Red Cell Dist. Width 12.8 % (11.5-14.5); Sodium 140 mmol/L (135-145); White Blood Cell Count 6.7 10^3/uL (4.8-10.8); eGFR > 60.00
[2024-08-31] MEDS: COZAAR 100 MG PO (08:10)
[2024-08-31] MEDS: PROTONIX 40 MG PO (08:10)
[2024-08-31] MEDS: ELIQUIS 5 MG PO ×2 (08:11→19:16)
[2024-08-31] MEDS: COREG 12.5 MG PO ×2 (08:11→19:16)
[2024-08-31] MEDS: TYLENOL 1000 MG PO (08:11)
[2024-08-31] MEDS: LASIX 40 MG IV ×2 (08:12→15:44)
[2024-08-31] MEDS: CARDIZEM CD 240 MG PO (08:20)
--- NOTE | 2024-08-31 08:57 | W.PN.CD ---
Today's Communication / Plan
-
start spironolactone 25 mg daily
hart out [id number]
npo p mn for anil/dccv in am
compression
Impression / Plan
-
64-year-old man with VT s/p ICD, HFpEF, hypertension, hyperlipidemia, JACOBO on CPAP, paroxysmal atrial fibrillation (previously not on anticoagulation) who presents with 2 weeks of dyspnea and leg swelling.
Kwvvx-pn-jvyfcdb HFpEF
- Severe exacerbation requiring IV diuresis and close monitoring of labs and telemetry
- TTE 08/27/24: LVEF 60-65%, severe TR, PASP 41 mmHg
- Typically on high dose torsemide daily (100 mg), but hasn't been taking that for weeks due to frequent urination.
- Continue IV Lasix 40 mg twice daily. Weights are coming down.
-will add spironolactone 25mg daily and hart check Farxiga vs Jardiance
-add compression
- Strict I/O's, daily weights, BMP
- CHF education. Limit sodium and fluid.
AFIB: persistent
-OP notes reviewed and paroxysmal in the past. Per device RN, patient in AFIB since 06/18/24 with rates 70-140 BPM.
-no palps. Continue diltiazem 240 mg daily and Carvedilol 12.5mg daily
-reports compliance with CPAP, does not drink any ETOH at this time due to his diet
-OXAPb2CKQc score is 2 for HTN, CHF. Continue Eliquis 5 mg twice daily (new this admission)
-will make NPO p MN tomorrow for ANIL/DCCV
Hypertensive urgency
- Initially required nitro drip but had to be stopped due to headaches
- On dilt 180 mg daily at home. Diltiazem increased to 240 mg daily as above
- Continue carvedilol 12.5 mg twice daily
- Increase losartan to 100 mg daily
-adding spironolactone
- monitor with diuresis
VT s/p ICD:
-stable, no shocks or ventricular events on interrogation
Obesity, severe:
-will benefit from weight loss moving forward
Subjective: he is feeling better, still a bit sob with deep breaths but better at rest and with ambulation
Physical Exam
Vital Signs/Labs
Vital Signs
Temp Pulse Resp BP Pulse Ox
99.2 F 78 15 157/89 95
08/31/24 07:48 08/31/24 08:20 08/31/24 07:48 08/31/24 08:20 08/31/24 07:48
08/30/24 08/31/24 09/01/24
06:59 06:59 06:59
Actual Weight 326 lb 4.546 oz 322 lb 8.58 oz
08/31/24 04:18
08/31/24 04:18
08/27/24
09:33
Kmg-M-Bwhpihwrwae Pept 1740
Physical Exam
Constitutional: No acute distress
Cardiovascular: Systolic murmur absent, Diastolic murmur absent, Rhythm/rate is irregular and Pedal edema present (1-2+ pitting b/l )
Respiratory: Respiratory effort normal, Lungs clear to auscul., Wheeze Absent, Crackles Absent and Rhonchi Absent
Neuro/Psych: AO x 3
Data Reviewed
-
Date of Service: August 31, 2024
EKG: Other (tele fib rate controlled with pvcs)
[2024-08-31] MEDS: ALDACTONE 25 MG PO (10:10)
--- NOTE | 2024-08-31 12:50 | CM ---
priced ronny kauffman with pt PP plan. both copays are $50/month. i placed the ronny copay card in pts red dc folder- with coupon his cost is ZERO.
--- NOTE | 2024-08-31 14:32 | W.PN.HOSP.TC ---
Today's Communication/Plan
-
NPO p MN for NIMESH/CV
Assessment / Plan
Assessment / Plan
Assessment:
Acute on chronic heart failure with preserved ejection fraction
- TTE 08/27/24: LVEF 60-65%, severe TR, PASP 41 mmHg
- continue IV Lasix; requires intensive monitoring of I/OS, weights, lytes
- Na and fluid restrictions
- GDMT per Cardiology
Non-ischemic myocardial injury
- trop peaked at 0.36
Hx of Afib, persistent
- Continue rate control with Cardizem and Coreg
- continue Eliquis
- NPO p MN for NIMESH/CV
Hypertensive emergency with heart failure
Primary HTN ( poorly controlled)
- s/p Nitro gtt
- continue Losartan/Diltazem/Aldactone/Lasix/Coreg
Hx of VT s/p ICD
Morbid obesity, BMI 45
- weight loss counselling
Obstructive sleep apnea, continue with CPAP
DVT ppx: Eliquis
Code: Full
Anticipated Discharge: 24 - 48 hours
Subjective/Interval History
-
Date of Service: August 31, 2024
feels less SOB. Denies CP
Objective Data
-
Labs:
Laboratory Results
08/31/24
04:18
WBC 6.7
Hgb 14.3
Hct 41.0
Plt Count 197 D
Sodium 140
Potassium 3.7
Chloride 101
Carbon Dioxide 27
BUN 25 H
Creatinine 1.1
Glucose 142 H
Calcium 9.1
Vital Signs:
Vital Signs
Temp Pulse Resp BP Pulse Ox
97.8 F 70 20 120/66 97
08/31/24 11:53 08/31/24 11:53 08/31/24 11:53 08/31/24 11:53 08/31/24 11:53
I&O
08/30/24 08/31/24 09/01/24
06:59 06:59 06:59
Intake Total 960 / 960 1140 / 1140
Output Total 250 / 250
Balance 960 / 960 890 / 890
Physical Exam
-
General: No Apparent Distress
HEENT: Normocephalic and Atraumatic
Respiratory: Negative Wheezes
Cardiac: Irregular Rhythm
GI: Soft
Genito-urinary: No Costovertebral Tender
Neuro: AO x 3
Psych: Calm
Data Reviewed
-
Total Time Spent with Patient (in minutes): 51
Labs: Labs Reviewed by me
--- NOTE | 2024-08-31 19:09 | PTCARENOTE ---
~[id number]: Received report from nightshiandres RN. Pt AOx4; Afib with occassional VB paced beats 70s-80s; 95% RA. Pt OOB in chair at this time. Pt c/o 4/10 back pain, PRN tylenol given. 40 lasix given with AM meds, I/Os charted. BLE +2 edema; +2
radial/ +1 DP pulses noted. All needs met at this time, call rees within reach.
~5525-9587: Patient OOB in chair. Per patient, PRN tylenol 'helped back pain.' Pt request to take a shower when arrives, per provider 'ok' to shower.
0819-1726: Patient's at bedside and assisted with patient shower. All needs met at this time.
~9145-5434: Patient OOB in chair with spouse at bedside. No c/o at this time. All needs met, call rees within reach. Handoff report given to ruben RN.
--- NOTE | 2024-08-31 21:58 | PTCARENOTE ---
Pt rec'd at change of shift oob sitting in recliner chair with friends present. 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 Pt npo after mn.
[2024-08-31] MEDS: TYLENOL 650 MG PO (22:13)
--- NOTE | 2024-08-31 22:15 | PTCARENOTE ---
Pt medicated with Tylenol for 4 out of 10 pain right lower back. Pt reports screw loose from recent back surgery per f/u scan. Pt aware of npo status after mn
[2024-09-01 04:03] VITALS: BP 159/85
[2024-09-01 04:56] LABS: Hematocrit 40.3 % (39.0-52.0); Hemoglobin 13.9 g/dL (13.0-18.0); Mean Corp Hgb Conc. 34.5 g/dL (33.0-37.0); Mean Corpuscular Hgb 29.1 pg (27.0-31.0); Mean Corpuscular Volume 84.5 fL (80.0-94.0); Mean Platelet Volume 10.8 fL (7.4-10.4); Platelet Count 178 10^3/uL (130-400); Red Blood Cell Count 4.77 10^6/uL (4.70-6.10); Red Cell Dist. Width 12.9 % (11.5-14.5); White Blood Cell Count 5.6 10^3/uL (4.8-10.8)
[2024-09-01 05:10] LABS: Blood Urea Nitrogen 26 mg/dl (9-20); Calcium 8.9 mg/dl (8.4-10.2); Carbon Dioxide 27 mmol/L (22-30); Chloride 101 mmol/L (98-107); Estimated Creatinine Clearance 115 ml/min; Glucose 127 mg/dl (70-99); Potassium 3.5 mmol/L (3.5-5.1); Sodium 140 mmol/L (135-145); eGFR > 60.00
[2024-09-01 06:00] VITALS: BMI 42.2
[2024-09-01] MEDS: ELIQUIS 5 MG PO (06:41)
--- NOTE | 2024-09-01 08:13 | W.PN.CD ---
Today's Communication / Plan
-
transition to torsemide 40mg daily
start farxiga 10mg daily
ok to discharge from cardiology perspective, will arrange f/u and labs
typical cardiology : Dr Bella
Impression / Plan
-
64-year-old man with VT s/p ICD, HFpEF, hypertension, hyperlipidemia, JACOBO on CPAP, paroxysmal atrial fibrillation (previously not on anticoagulation) who presents with 2 weeks of dyspnea and leg swelling.
[id number] HFpEF
- Severe exacerbation requiring IV diuresis and close monitoring of labs and telemetry
- TTE 08/27/24: LVEF 60-65%, severe TR, PASP 41 mmHg
- Typically on high dose torsemide daily (100 mg), but hasn't been taking that for weeks due to frequent urination.
-Let transition to 40 mg po now that he is down significant amount of weight and we are adding MRA/Farxiga.
-will add spironolactone 25mg daily and start Farxiga
-will need renal panel at 1,2 and 3 weeks--not fasting
-continue compression
- Strict I/O's, daily weights, BMP
- CHF education. Limit sodium and fluid.
AFIB: persistent
-OP notes reviewed and paroxysmal in the past. Per device RN, patient in AFIB since 06/18/24 with rates 70-140 BPM.
-no palps. Continue diltiazem 240 mg daily and Carvedilol 12.5mg daily
-reports compliance with CPAP, does not drink any ETOH at this time due to his diet
-[id number] score is 2 for HTN, CHF. Continue Eliquis 5 mg twice daily (new this admission)
-successful anil/dccv
Hypertensive urgency
- Initially required nitro drip but had to be stopped due to headaches
- On dilt 180 mg daily at home. Diltiazem increased to 240 mg daily as above
- Continue carvedilol 12.5 mg twice daily
- Increase losartan to 100 mg daily
-added spironolactone
- monitor with diuresis and ongoing titration as an op.
VT s/p ICD:
-stable, no shocks or ventricular events on interrogation
Obesity, severe:
-will benefit from weight loss moving forward
Subjective: he is feeling better,
Physical Exam
Vital Signs/Labs
Vital Signs
Temp Pulse Resp BP Pulse Ox
97.8 F 79 24 159/85 95
08/31/24 22:07 09/01/24 06:40 08/31/24 22:07 09/01/24 04:03 08/31/24 22:07
08/31/24 09/01/24 09/02/24
06:59 06:59 06:59
Actual Weight 322 lb 8.58 oz 320 lb 1.779 oz
09/01/24 04:11
09/01/24 04:11
Magnesium 2.0 mg/dl (1.6-2.3) 09/01/24 04:11
08/27/24
09:33
[id number] Pept 1740
Physical Exam
Constitutional: No acute distress
Cardiovascular: Rhythm & rate is regular, JVD pressure is normal, Systolic murmur absent, Diastolic murmur absent and Pedal edema present (1+b/l )
Respiratory: Respiratory effort normal, Lungs clear to auscul., Wheeze Absent, Crackles Absent and Rhonchi Absent
Neuro/Psych: AO x 3
Data Reviewed
-
Date of Service: September 01, 2024
Medical Decision Making: Review of Case with other Provider (ok to discharge on new medi cations)
EKG: Other (sinus on tele post dccv)
Medical Tests (PFT, Pathology etc): Discussed with Family (Discussed plans and new medications with his . )
--- NOTE | 2024-09-01 08:25 | ITS.CL.CARDI ---
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
Cardioversion
Procedure Report:
Date of Procedure: 09/01/24
Procedure: Cardioversion
Indication: Symptomatic atrial fibrillation
Performing Physician: John Becerra MD
Technique: The patient was brought to the holding area. Signed informed consent was obtained. A time out was called and performed. The patient was anesthetized by the anesthesia service. Anticoagulation status was reviewed and appropriate. R2 pads
were placed anteriorly and posteriorly. After NIMESH revealed no left atrial appendage thrombus, a 200 J synchronized biphasic shock restored normal sinus rhythm without significant bradycardia. There were no complications.
Conclusion: Uncomplicated cardioversion from atrial fibrillation to sinus rhythm.
Recommendation: Routine post cardioversion care. Continue retirement anticoagulation.
[2024-09-01 09:24] VITALS: BP 145/84
[2024-09-01] MEDS: COREG 12.5 MG PO (09:25)
[2024-09-01] MEDS: FARXIGA 10 MG PO (09:25)
[2024-09-01] MEDS: DEMADEX 40 MG PO (09:25)
[2024-09-01] MEDS: CARDIZEM CD 240 MG PO (09:26)
[2024-09-01] MEDS: COZAAR 100 MG PO (09:26)
[2024-09-01] MEDS: PROTONIX 40 MG PO (09:27)
[2024-09-01] MEDS: ALDACTONE 25 MG PO (09:27)
[2024-09-01] MEDS: LASIX IV (10:03)
--- NOTE | 2024-09-01 11:27 | W.PN.HOSP.TC ---
Today's Communication/Plan
-
dc to home later today
Assessment / Plan
Assessment / Plan
Assessment:
Acute on chronic heart failure with preserved ejection fraction
- TTE 08/27/24: LVEF 60-65%, severe TR, PASP 41 mmHg
- s/p IV Lasix course; now transition to Torsemide 40mg daily
- Na and fluid restrictions
- GDMT: Farxiga, Aldactone
Non-ischemic myocardial injury
- trop peaked at 0.36
Hx of Afib, persistent
- s/p NIMESH/CV
- continue Cardizem/Coreg/Eliquis
Hypertensive emergency with heart failure
Primary HTN ( poorly controlled)
- s/p Nitro gtt
- continue Losartan/Diltazem/Aldactone/Torsemide/Coreg
Hx of VT s/p ICD
Morbid obesity, BMI 45
- weight loss counselling
Obstructive sleep apnea, continue with CPAP
DVT ppx: Eliquis
Code: Full
More than 30 minutes spent in discharge including
Final examination of the patient
Summarizing hospital stay
Instructions for continuing care to all relevant caregivers
Preparation of discharge records, prescriptions, and referral forms
Total time spent (in minutes):41
Anticipated Discharge: Today
Subjective/Interval History
-
Date of Service: September 01, 2024
s/p NIMESH/CV with NSR restored
feels well
Objective Data
-
Labs:
Laboratory Results
09/01/24
04:11
WBC 5.6
Hgb 13.9
Hct 40.3
Plt Count 178
Sodium 140
Potassium 3.5
Chloride 101
Carbon Dioxide 27
BUN 26 H
Creatinine 1.0
Glucose 127 H
Calcium 8.9
Vital Signs:
Vital Signs
Temp Pulse Resp BP Pulse Ox
98.7 F 61 20 145/84 96
09/01/24 09:24 09/01/24 09:27 09/01/24 09:24 09/01/24 09:27 09/01/24 09:24
I&O
08/31/24 09/01/24 09/02/24
06:59 06:59 06:59
Intake Total 1140 / 1140
Output Total 250 / 250
Balance 890 / 890
Physical Exam
-
General: No Apparent Distress
HEENT: Normocephalic and Atraumatic
Respiratory: Negative Wheezes
Cardiac: Regular Rhythm and S1/S2
GI: Soft and Nontender
Neuro: AO x 3
Psych: Calm
Data Reviewed
-
Total Time Spent with Patient (in minutes): 41
Labs: Labs Reviewed by me
--- NOTE | 2024-09-01 11:32 | W.DS.TRANS ---
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
-
Discharge Instructions:
Discharge Diagnosis/Procedures Afib s/p NIMESH/CV 09/01. Acute CHF
Diet 2 Gram Sodium,Restrict fluids to 48 oz
Driving Restrictions No driving for 24 hours
Blood Work Outpatient labs in 7 days. Lab slip provided.
Specialty Instructions Weigh Daily
Instructions: *[facility] Heart Failure Instructions
Stand-Alone Forms:
Changes to Home Medications: Yes
Discharge Medications:
DC Medications w/original date entered in [facility]
rabeprazole 20 mg tablet,delayed release (AcipHex) 20 mg PO DAILY 04/24/21
docusate sodium 100 mg capsule (Colace) 200 mg PO HSPRN PRN constipation 08/27/24
apixaban 5 mg tablet (Eliquis) 5 mg PO BID #60 tabs 09/01/24
carvedilol 12.5 mg tablet 12.5 mg PO BID #60 tabs 09/01/24
dapagliflozin propanediol 10 mg tablet 10 mg PO DAILY #30 tabs 09/01/24
diltiazem HCl 240 mg capsule,extended release 24 hr 240 mg PO DAILY #30 caps 09/01/24
losartan 50 mg tablet 100 mg (2 x 50 mg) PO DAILY #60 tabs 09/01/24
spironolactone 25 mg tablet 25 mg PO DAILY #30 tabs 09/01/24
torsemide 20 mg tablet 40 mg (2 x 20 mg) PO DAILY #60 tabs 09/01/24
Home Medication Changes
Torsemide dose changed
Cardizem dose changed
Farxiga and Aldactone added
Pending Results: No
Total time spent discharging patient (in min): 41
--- NOTE | 2024-09-01 12:13 | PTCARENOTE ---
~0700: Handoff report received from dayami CARTAGENA. Pt Aox4, Afib/ V paced on tele, RA. Pt independent in room. Pt denies pain at this time. Pt NPO since midnight. Around 0710, patient went to [facility] for NIMESH/ cardioversion.
~0850: Received report fom [facility]. Patient now AV paced, VSS. Awaiting patient transfer back to room.
~5559-5967: Patient in room, AV paced on tele, VSS. Meds given and Farxiga started per order. All needs met at this time, call rees within reach.
~3412-6501: DC orders place, paperwork reviewed with patient and spouse. Patient dc/'d via wheelchair to lobby.
== END 2024-09-01 12:58 | disposition home or self-care (01) | DRG 291 ==
LOC: IVU 16:43
PROVIDERS: Internal Medicine Cardiovascular Disease; Nurse Practitioner; Physician Assistant Medical; ADMITTING PHYSICIAN Internal Medicine; ATTENDING PHYSICIAN Internal Medicine; CONSULT PHYSICIAN Student in an Organized Health Care Education/Training Program; EMERGENCY PHYSICIAN Emergency Medicine; FAMILY PHYSICIAN Family Medicine
PROC: 4B02XTZ Measurement of Cardiac Defibrillator, External Approach (ICD-10-PCS; 2024-08-27)
PROC: B24BZZ4 Ultrasonography of Heart with Aorta, Transesophageal (ICD-10-PCS; 2024-09-01)
PROC: 5A2204Z Restoration of Cardiac Rhythm, Single (ICD-10-PCS; 2024-09-01)
DX: I11.0 Hypertensive heart disease with heart failure (principal); I50.33 Acute on chronic diastolic (congestive) heart failure; I48.19 Other persistent atrial fibrillation; I16.1 Hypertensive emergency; Z68.42 Body mass index [BMI] 45.0-49.9, adult; I5A Non-ischemic myocardial injury (non-traumatic); K21.9 Gastro-esophageal reflux disease without esophagitis; G47.30 Sleep apnea, unspecified; G47.33 Obstructive sleep apnea (adult) (pediatric); E66.01 Morbid (severe) obesity due to excess calories; E78.00 Pure hypercholesterolemia, unspecified; M79.89 Other specified soft tissue disorders; R06.00 Dyspnea, unspecified; R51.9 Headache, unspecified; I07.1 Rheumatic tricuspid insufficiency; Z86.79 Personal history of other diseases of the circulatory system; Z95.810 Presence of automatic (implantable) cardiac defibrillator; Z91.148 Patient's other noncompliance with medication regimen for other reason; Z82.49 Family history of ischemic heart disease and other diseases of the circulatory system
CPT/HCPCS: 71045; 80048; 80076; 83735; 83880; 84443; 84484; 85025; 85027; 92960; 93005; 93306; 93312; 93320; 93325; 96374; 96375; 99291; Q9950

== ENCOUNTER → 2024-09-18 13:09 | Outpatient (REF) | payer OTHER, SELFPAY | LOC: MRI 3T 13:09 | PROVIDERS: ATTENDING PHYSICIAN Orthopaedic Surgery Orthopaedic Surgery of the Spine; FAMILY PHYSICIAN Family Medicine | DX: M48.062 Spinal stenosis, lumbar region with neurogenic claudication (principal) | CPT/HCPCS: 72158; 76014; 76015; A9575 ==